=== PATIENT | male | born 1970 | race Caucasian/White ===

== ENCOUNTER → 2020-12-19 | Outpatient (CLI) | payer OTHER ==
[2020-12-21 20:06] LABS: FREE TESTOSTERONE(DIRECT) 3.3 pg/mL (6.8-21.5); TESTOSTERONE, SERUM 89 ng/dL (264-916)
== END ==
LOC: LAB 11:30 → LAB SHORT 11:30
PROVIDERS: Family Medicine
DX: Z51.81 Encounter for therapeutic drug level monitoring (principal); Z79.890 Hormone replacement therapy
CPT/HCPCS: 84402; 84403